=== PATIENT | female | born 1995 | race African-American/Black ===

== ENCOUNTER 2017-02-06 01:15 | Emergency (ER) | payer OTHER ==
[~2017-02-06] VITALS: Ht 167.6 cm; Wt 70.5 kg
[2017-02-06 01:18] VITALS: BP 137/77; TEMP 98.5
[2017-02-06] MEDS ORDERED: PREDNISONE20 MG PO (01:38)
[2017-02-06] MEDS ORDERED: ALLEGRA ALLERGY60 MG PO (02:01)
[2017-02-06 02:31] VITALS: PULSE 89
== END 2017-02-06 02:34 | disposition home or self-care (01) ==
LOC: COL.ER 01:15
DX: J45.901 Unspecified asthma with (acute) exacerbation (principal)
CPT/HCPCS: J7512

== ENCOUNTER 2017-12-14 14:48 | Emergency (ER) | payer OTHER ==
[~2017-12-14] VITALS: Ht 167.6 cm; Wt 70.9 kg
[~2017-12-14 14:48] MED LIST: ALLEGRA ALLERGY60 MG PO; PREDNISONE20 MG PO
[2017-12-14 14:58] VITALS: TEMP 99
[2017-12-14 15:29] LABS: COLLECTION METHOD CLEAN CATCH
[2017-12-14 15:29] LABS: BASO % 0.4 % (0.0-2.0); EOS # 0.3 (0.0-0.7); EOS % 2.7 % (0-4.0); GRAN # 6.3 (1.4-6.5); GRAN % 66.1 % (42.2-75.2); HEMOGLOBIN 12.6 g/dl (12.0-15.0); LYMPH # 1.8 (1.2-3.4); LYMPH % 18.2 % (20.0-51.0); MEAN CELL VOLUME 90 fl (80.0-95.0); MEAN CORPUSCULAR HEMOGLOBIN 31 pg (26.0-32.0); MEAN CORPUSCULAR HGB CONC 34 g/dl (33.0-37.0); MEAN PLATELET VOLUME 8.7 fl (7.4-10.4); MONO # 1.2 (0.1-0.6); MONO % 12.3 % (1.7-9.3); PLATELET COUNT 300 K/mm3 (130-400); RED BLOOD COUNT 4.08 M/mm3 (4.10-5.30)
[2017-12-14 15:35] LABS: HEMATOCRIT 36.6 % (35.0-45.0)
[2017-12-14 15:41] LABS: MUCOUS Present /lpf; PH 6 (5-8); URINE APPEARANCE Cloudy; URINE BACTERIA None Seen /hpf; URINE BILIRUBIN Negative (NEGATIVE); URINE BLOOD Negative (NEGATIVE); URINE COLOR Amber; URINE GLUCOSE Negative (NEGATIVE); URINE KETONE Negative (NEGATIVE); URINE LEUKOCYTE ESTERASE 3+ (NEGATIVE); URINE NITRATE Positive (NEGATIVE); URINE PROTEIN(semi-quant) 1+ (NEGATIVE); URINE UROBILINOGEN >=4.0 mg/dL (NEGATIVE)
[2017-12-14 15:43] LABS: ALANINE AMINOTRANSFERASE 27 U/L (9-52); ALBUMIN 3.9 gm/dL (3.5-5.0); ALKALINE PHOSPHATASE 68 U/L (50-136); ANION GAP 7 mmol/L (7-16); AST,SGOT 15 U/L (15-37); BILIRUBIN,TOTAL 0.5 mg/dL (0.0-1.0); BLOOD UREA NITROGEN 10 mg/dL (7-17); CALCIUM 8.9 mg/dL (8.4-10.2); CARBON DIOXIDE 29 mmol/L (22-30); CHLORIDE 100 mmol/L (98-107); CREATININE, serum 0.75 mg/dL (0.52-1.25); GLUCOSE 86 mg/dL (74-106); POTASSIUM 3.7 mmol/L (3.4-5.0); SODIUM 135 mmol/L (137-145)
[2017-12-14 15:45] LABS: TRICYCLIC ANTIDEPRESS URINE NEGATIVE
[2017-12-14 15:47] LABS: ACETAMINOPHEN < 10 ug/mL (10-30); ALCOHOL(ethanol),MEDICAL < 10 mg/dL; SALICYLATE < 1.0 mg/dL
[2017-12-14] MEDS ORDERED: WELLBUTRIN XL300 M1 PO (15:55)
[2017-12-14 17:24] LABS: COLLECTION METHOD CLEAN CATCH
[2017-12-14 17:40] LABS: MUCOUS Present /lpf; PH 7 (5-8); URINE APPEARANCE Hazy; URINE BACTERIA Rare /hpf; URINE BILIRUBIN Negative (NEGATIVE); URINE BLOOD Negative (NEGATIVE); URINE COLOR Yellow; URINE GLUCOSE Negative (NEGATIVE); URINE KETONE Negative (NEGATIVE); URINE LEUKOCYTE ESTERASE 2+ (NEGATIVE); URINE NITRATE Negative (NEGATIVE); URINE PROTEIN(semi-quant) Negative (NEGATIVE); URINE RBC 0-2 /hpf; URINE UROBILINOGEN >=4.0 mg/dL (NEGATIVE)
[2017-12-14] MEDS ORDERED: MACROBID 1100 MG/CAP PO (21:54)
[2017-12-14 22:16] VITALS: BP 102/71; PULSE 95
== END 2017-12-14 22:16 | disposition home or self-care (01) ==
LOC: COL.ER 14:48
PROVIDERS: Emergency Medicine
DX: F32.9 Major depressive disorder, single episode, unspecified (principal); R45.851 Suicidal ideations; N39.0 Urinary tract infection, site not specified

== ENCOUNTER → 2018-01-14 | Outpatient (CLI) | payer OTHER ==
[~2018-01-14] MED LIST changes: +MACROBID 1100 MG/CAP PO; +WELLBUTRIN XL300 M1 PO
== END ==
LOC: COL.RAD 12:30
DX: S06.0X0D Concussion without loss of consciousness, subsequent encounter (principal); G44.309 Post-traumatic headache, unspecified, not intractable
CPT/HCPCS: A9585

== ENCOUNTER 2018-11-16 20:29 | Emergency (ER) | payer OTHER ==
[~2018-11-16] VITALS: Ht 162.6 cm; Wt 74.5 kg
[2018-11-16 20:32] VITALS: TEMP 97.4
[2018-11-16 22:14] LABS: COLLECTION METHOD CLEAN CATCH
[2018-11-16 22:24] LABS: MUCOUS Present /lpf; PH 5 (5-8); URINE APPEARANCE Hazy; URINE BACTERIA Rare /hpf; URINE BILIRUBIN Negative (NEGATIVE); URINE BLOOD Negative (NEGATIVE); URINE COLOR Yellow; URINE GLUCOSE Negative (NEGATIVE); URINE KETONE Negative (NEGATIVE); URINE LEUKOCYTE ESTERASE Negative (NEGATIVE); URINE NITRATE Negative (NEGATIVE); URINE PROTEIN(semi-quant) Negative (NEGATIVE); URINE RBC 0-2 /hpf; URINE UROBILINOGEN >=4.0 mg/dL (NEGATIVE)
[2018-11-17 00:10] LABS: ALBUMIN 4.1 gm/dL (3.5-5.0); BILIRUBIN,TOTAL 0.3 mg/dL (0.0-1.0); C-REACTIVE PROTEIN 4.8 mg/dL (0.0-0.9); CALCIUM 8.8 mg/dL (8.4-10.2); CREATININE, serum 0.69 (0.52-1.25); POTASSIUM 3.7 mmol/L (3.4-5.0); TOTAL PROTEIN 7.4 gm/dL (6.4-8.2)
[2018-11-17 01:35] LABS: HEMATOCRIT 39.2 % (37.0-47.0); HEMOGLOBIN 12.9 g/dl (12.5-16.0); MEAN CELL VOLUME 92 fl (80.0-100.0); MEAN CORPUSCULAR HEMOGLOBIN 30 pg (27.0-31.0); MEAN CORPUSCULAR HGB CONC 33 g/dl (33.0-37.0); MEAN PLATELET VOLUME 9.8 fl (7.4-10.4); PLATELET COUNT 319 K/mm3 (130-400); RED BLOOD COUNT 4.26 M/mm3 (4.10-5.30); REDCELL DISTRIBUTION WIDTH-CV 12.4 % (11.5-14.5)
[2018-11-17 01:36] LABS: LYMPHOCYTE 42 % (20.0-51.0); NEUTROPHILS 45 % (42.0-75.2); PLATELET ESTIMATE NORMAL (NORMAL)
[2018-11-17] MEDS ORDERED: NORCO 325 MG-51 TAB PO (02:38)
[2018-11-17] MEDS ORDERED: ZOFRAN ODT4 MG PO (02:38)
[2018-11-17 02:55] VITALS: BP 100/63; PULSE 72
[2018-11-17] MEDS ORDERED: OMNICEF 300MG300 MG PO (08:13)
== END 2018-11-17 02:55 | disposition home or self-care (01) ==
LOC: COL.ER 20:29
PROVIDERS: Physician Assistant
DX: N39.0 Urinary tract infection, site not specified (principal); D64.9 Anemia, unspecified
CPT/HCPCS: J1885; J2405; J7030; Q9967

== ENCOUNTER → 2020-03-19 | Outpatient (CLI) | payer OTHER ==
[~2020-03-19] MED LIST changes: +NORCO 325 MG-51 TAB PO; +OMNICEF 300MG300 MG PO; +ZOFRAN ODT4 MG PO
== END ==
LOC: COL.RAD 12:12
DX: R10.9 Unspecified abdominal pain (principal); R19.7 Diarrhea, unspecified

== ENCOUNTER 2021-03-10 16:56 | Emergency (ER) | payer OTHER ==
[~2021-03-10] VITALS: Ht 165.1 cm; Wt 79.4 kg
[2021-03-10 18:01] VITALS: TEMP 98.6
[2021-03-10] MEDS ORDERED: FLEXERIL 1010 MG/TAB PO (19:36)
[2021-03-10] MEDS ORDERED: MEDROL 4MG DOSPA4 MG PO (19:37)
[2021-03-10 20:04] VITALS: BP 104/72; PULSE 65
== END 2021-03-10 20:10 | disposition home or self-care (01) ==
LOC: COL.ER 16:56
DX: S29.012A Strain of muscle and tendon of back wall of thorax, initial encounter (principal); M62.838 Other muscle spasm; X50.0XXA Overexertion from strenuous movement or load, initial encounter
CPT/HCPCS: J1885

== ENCOUNTER 2021-04-25 18:17 | Emergency (ER) | payer OTHER ==
[~2021-04-25] VITALS: Ht 162.6 cm; Wt 81.8 kg
[~2021-04-25 18:17] MED LIST changes: +FLEXERIL 1010 MG/TAB PO; +MEDROL 4MG DOSPA4 MG PO
[2021-04-25 18:19] VITALS: TEMP 97.9
[2021-04-25] MEDS ORDERED: PREDNISONE20 MG PO (19:02)
[2021-04-25 19:38] VITALS: BP 136/73; PULSE 103
== END 2021-04-25 19:38 | disposition home or self-care (01) ==
LOC: COL.ER 18:17
DX: J45.901 Unspecified asthma with (acute) exacerbation (principal); J06.9 Acute upper respiratory infection, unspecified; Z20.822 Contact with and (suspected) exposure to COVID-19
CPT/HCPCS: J7512